=== PATIENT | female | born 1940 | race Native Hawaiian/Other Pacific Islander ===

== ENCOUNTER 2017-03-21 05:43 | Outpatient (CLI) | payer OTHER ==
[~2017-03-21 05:43] MED LIST: ACID REDUCER150 MG PO; ALPR0.5T24 PO; ANTI-DIARRHEAL2 MG PO; ASPIR-LOW81 MG PO; COZAAR100 MG PO; ELIQUIS5 MG PO; GLIM4TAB PO; MECLIZINE25 MG PO; NEPHRO-VITE; NITR0.4S2 SL; TRAM50TA PO
== END 2017-03-21 05:50 | disposition short-term general hospital (02) ==
LOC: AMB 05:43
DX: E16.1 Other hypoglycemia (principal)
CPT/HCPCS: A0425; A0427

== ENCOUNTER 2017-03-21 05:50 | Observation (INO) | payer OTHER ==
[2017-03-21] VITALS (9 sets, daily range): BP systolic 129–166; BP diastolic 42–65; TEMP 97.9–98.6; Ht 165.1 cm; Wt 83.5 kg
[~2017-03-21] VITALS: Ht 165.1 cm; Wt 83.5 kg
[2017-03-21 06:31] LABS: POTASSIUM 3.1 mmol/L (3.6-5.2)
[2017-03-21 06:36] LABS: PLATELET COUNT 199 K/uL (152-353)
--- NOTE | 2017-03-21 17:14 | NUR ---
PTS BLOOD SUGAR 65, CALLED DR [facility] AND CELL PHONE WITH NO ANSWER
== END 2017-03-21 19:15 | disposition short-term general hospital (02) ==
LOC: ED 05:50 → MED/SURG 08:20 → ED 09:20 → MED/SURG 19:15
PROVIDERS: Specialist; ADMIT Family Medicine
PROC: 5A1D70Z Performance of Urinary Filtration, Intermittent, Less than 6 Hours Per Day (ICD-10-PCS; principal; 2017-03-21)
DX: R41.82 Altered mental status, unspecified (principal); E11.649 Type 2 diabetes mellitus with hypoglycemia without coma; I12.0 Hypertensive chronic kidney disease with stage 5 chronic kidney disease or end stage renal disease; E11.22 Type 2 diabetes mellitus with diabetic chronic kidney disease; N18.6 End stage renal disease; T81.31XA Disruption of external operation (surgical) wound, not elsewhere classified, initial encounter
CPT/HCPCS: 36415; 36416; 36591; 80048; 80202; 82947; 85027; 87040; 87070; 87205; 96365; 96375; 99220; 99284; G0257; G0378; J1644; J3370; J7060

== ENCOUNTER → 2017-04-11 22:31 | Outpatient (CLI) | payer OTHER | END | disposition home or self-care (01) | LOC: AMB 22:31 | DX: E16.1 Other hypoglycemia (principal) ==

== ENCOUNTER 2017-04-18 10:22 | Observation (INO) | payer OTHER ==
[~2017-04-18] VITALS: Ht 160 cm; Wt 81.3 kg
[2017-04-18 10:15] VITALS: BP 156/56; TEMP 98.4
[2017-04-18 11:04] LABS: PLATELET COUNT 181 K/uL (152-353)
[2017-04-18 13:54] VITALS: BP 157/62; TEMP 98.6; Ht 160 cm; Wt 81.3 kg
[2017-04-18 20:00] VITALS: BP 130/40; TEMP 97.4
[2017-04-19] VITALS (12 sets, daily range): BP systolic 110–153; BP diastolic 32–61; TEMP 97.5–98.9
[2017-04-19 11:44] LABS: POTASSIUM 3.8 mmol/L (3.6-5.2)
[2017-04-19 12:45] LABS: PARTIAL THROMBOPLASTIN TIME 138.3 SECONDS (24.5-33.6)
[2017-04-19 17:02] LABS: PLATELET COUNT 194 K/uL (152-353)
[2017-04-19 17:17] LABS: POTASSIUM 3.8 mmol/L (3.6-5.2)
[2017-04-19 17:18] LABS: PARTIAL THROMBOPLASTIN TIME 26.3 SECONDS (24.5-33.6)
== END 2017-04-19 20:53 | disposition home or self-care (01) ==
LOC: ED 10:22 → MED/SURG 11:10
PROVIDERS: ADMIT Student in an Organized Health Care Education/Training Program
PROC: 0J2VXYZ Change Other Device in Upper Extremity Subcutaneous Tissue and Fascia, External Approach (ICD-10-PCS; principal; 2017-04-19)
DX: N18.6 End stage renal disease (principal); Z49.01 Encounter for fitting and adjustment of extracorporeal dialysis catheter; I72.8 Aneurysm of other specified arteries; Z99.2 Dependence on renal dialysis
CPT/HCPCS: 36415; 80048; 80053; 85027; 85610; 85730; 99220; 99283; C1750; G0378; J0690; J1644; J2001; J2250; J2405; J2704; J2720; J2765; J3010; J3490; S0028

== ENCOUNTER 2017-05-11 15:03 | Outpatient (CLI) | payer OTHER ==
[2017-05-11 15:38] LABS: PLATELET COUNT 227 K/uL (152-353)
[2017-05-11 15:48] LABS: PLATELET COUNT 227 K/uL (152-353)
== END 2017-05-11 19:58 | disposition home or self-care (01) ==
LOC: LAB 15:03
PROVIDERS: Internal Medicine Nephrology
DX: D64.89 Other specified anemias (principal)
CPT/HCPCS: 85027

== ENCOUNTER 2017-07-10 17:15 | Emergency (ER) | payer OTHER ==
[~2017-07-10] VITALS: Ht 160 cm; Wt 74.4 kg
[2017-07-10 19:11] LABS: PARTIAL THROMBOPLASTIN TIME 21.2 SECONDS (24.5-33.6)
[2017-07-10 19:13] LABS: PLATELET COUNT 122 K/uL (152-353)
[2017-07-10 19:50] VITALS: BP 151/65; TEMP 98.2
== END 2017-07-10 19:55 | disposition home or self-care (01) ==
LOC: ED 17:15
PROVIDERS: Specialist
DX: T82.838A Hemorrhage due to vascular prosthetic devices, implants and grafts, initial encounter (principal); N18.5 Chronic kidney disease, stage 5
CPT/HCPCS: 36415; 85027; 85610; 85730; 99283

== ENCOUNTER 2017-07-29 11:13 | Outpatient (CLI) | payer OTHER | END 2017-07-29 20:26 | disposition home or self-care (01) | LOC: LAB 11:13 | DX: D64.89 Other specified anemias (principal) | CPT/HCPCS: 85018 ==

== ENCOUNTER 2017-08-29 06:22 | Observation (INO) | payer OTHER ==
[~2017-08-29] VITALS: Ht 152.4 cm; Wt 81.2 kg
[2017-08-29 06:38] VITALS: BP 131/54; TEMP 98
[2017-08-29] MEDS ORDERED: BENZONATATE100 MG PO (06:42)
[2017-08-29] MEDS ORDERED: ONDA4TAB3 PO (06:42)
[2017-08-29] MEDS ORDERED: AMLODIPINE BESYLATE PO (06:43)
[2017-08-29] MEDS ORDERED: BISOPROL FUM5 MG PO (06:43)
[2017-08-29] MEDS ORDERED: PANTOPRAZOLE 40MG TA PO (06:44)
[2017-08-29] MEDS ORDERED: DIPH2.5T76 PO (06:45)
[2017-08-29 06:55] LABS: PLATELET COUNT 216 K/uL (152-353)
[2017-08-29 07:14] LABS: POTASSIUM 3.6 mmol/L (3.6-5.2)
[2017-08-29 13:08] VITALS: BP 135/57; TEMP 97.6; Ht 152.4 cm; Wt 81.2 kg
[2017-08-29 20:00] VITALS: BP 138/78; TEMP 97.9
[2017-08-30 00:55] VITALS: BP 172/66; TEMP 97.8
[2017-08-30 04:22] VITALS: BP 145/61; TEMP 97.7
[2017-08-30 06:26] LABS: PLATELET COUNT 196 K/uL (152-353)
[2017-08-30 06:38] LABS: POTASSIUM 4.2 mmol/L (3.6-5.2)
[2017-08-30 08:00] VITALS: BP 133/54; TEMP 98
[2017-08-30 12:00] VITALS: BP 149/60; TEMP 97
== END 2017-08-30 17:00 | disposition home or self-care (01) ==
LOC: ED 06:22 → MED/SURG 10:40
PROVIDERS: Specialist; ADMIT Emergency Medicine
PROC: 5A1D70Z Performance of Urinary Filtration, Intermittent, Less than 6 Hours Per Day (ICD-10-PCS; principal; 2017-08-29)
DX: E11.22 Type 2 diabetes mellitus with diabetic chronic kidney disease (principal); N18.6 End stage renal disease; Z99.2 Dependence on renal dialysis; I12.0 Hypertensive chronic kidney disease with stage 5 chronic kidney disease or end stage renal disease; D53.9 Nutritional anemia, unspecified; I51.7 Cardiomegaly
CPT/HCPCS: 36415; 36600; 80053; 82805; 82947; 83605; 83735; 84100; 84484; 85027; 96375; 99220; 99283; G0257; G0378; J1644; J2405; J7060

== ENCOUNTER 2017-09-07 05:40 | Observation (INO) | payer OTHER ==
[2017-09-07] VITALS (17 sets, daily range): BP systolic 158–184; BP diastolic 61–84; TEMP 97–98.9; Ht 152.4 cm; Wt 80.5 kg
[~2017-09-07] VITALS: Ht 152.4 cm; Wt 80.5 kg
[~2017-09-07 05:40] MED LIST changes: +AMLODIPINE BESYLATE PO; +BENZONATATE100 MG PO; +BISOPROL FUM5 MG PO; +DIPH2.5T76 PO; +ONDA4TAB3 PO; +PANTOPRAZOLE 40MG TA PO
[2017-09-07 06:30] LABS: PLATELET COUNT 200 K/uL (152-353)
[2017-09-07 06:42] LABS: POTASSIUM 3.8 mmol/L (3.6-5.2)
[2017-09-07] MEDS ORDERED: TRAM50TA PO (13:38)
[2017-09-07] MEDS ORDERED: HYDR-3182 PO (13:40)
[2017-09-07] MEDS ORDERED: SEVE800T PO (13:54)
[2017-09-07] MEDS ORDERED: ALPR0.5T24 PO (13:54)
== END 2017-09-07 18:44 | disposition short-term general hospital (02) ==
LOC: ED 05:40 → ICU 07:30
PROVIDERS: ADMIT Family Medicine
DX: J18.8 Other pneumonia, unspecified organism (principal); E11.22 Type 2 diabetes mellitus with diabetic chronic kidney disease; N18.6 End stage renal disease; Z99.2 Dependence on renal dialysis; R06.02 Shortness of breath
CPT/HCPCS: 36415; 80053; 83605; 83880; 84484; 85027; 87040; 93005; 94640; 94664; 94760; 96365; 99220; 99284; G0378; J0456; J0696; J0698; J1644; J1940; J3370; J7060

== ENCOUNTER 2017-12-01 15:30 | Emergency (ER) | payer OTHER ==
[~2017-12-01] VITALS: Ht 160 cm; Wt 76.2 kg
[~2017-12-01 15:30] MED LIST changes: +HYDR-3182 PO; +SEVE800T PO
[2017-12-01 16:06] LABS: PLATELET COUNT 147 K/uL (152-353)
[2017-12-01 16:16] LABS: POTASSIUM 4.2 mmol/L (3.6-5.2)
[2017-12-01 18:34] VITALS: BP 136/79; TEMP 97.9
== END 2017-12-01 18:34 | disposition home or self-care (01) ==
LOC: ED 15:32
PROVIDERS: Family Medicine
DX: R18.8 Other ascites (principal); N18.6 End stage renal disease
CPT/HCPCS: 80053; 85027; 96374; 96375; 99284; J1885; J2405

== ENCOUNTER 2018-05-13 11:14 | Outpatient (CLI) | payer OTHER | END 2018-05-13 23:46 | disposition home or self-care (01) | LOC: LAB 11:14 | DX: D64.89 Other specified anemias (principal) | CPT/HCPCS: 85014; 85018 ==

== ENCOUNTER 2018-08-28 13:27 | Emergency (ER) | payer OTHER ==
[~2018-08-28] VITALS: Ht 160 cm; Wt 75.0 kg
[2018-08-28 14:31] LABS: PLATELET COUNT 206 K/uL (152-353)
[2018-08-28 14:49] LABS: POTASSIUM 4.2 mmol/L (3.6-5.2); SODIUM 139 mmol/L (136-145)
[2018-08-28 17:00] VITALS: TEMP 97.7
[2018-08-28 18:40] VITALS: BP 153/52
== END 2018-08-28 18:40 | disposition home or self-care (01) ==
LOC: ED 13:27
PROVIDERS: Emergency Medicine
DX: R18.8 Other ascites (principal)
CPT/HCPCS: 36415; 80053; 82550; 83605; 83690; 84484; 85027; 96374; 99284; J2405

== ENCOUNTER 2018-09-27 13:34 | Outpatient (CLI) | payer OTHER | END 2018-09-27 23:32 | disposition home or self-care (01) | LOC: US 13:34 | DX: R09.89 Other specified symptoms and signs involving the circulatory and respiratory systems (principal) ==

== ENCOUNTER 2019-12-21 13:54 | Outpatient (CLI) | payer OTHER | END 2019-12-21 20:45 | disposition home or self-care (01) | LOC: LAB 13:54 | DX: D64.89 Other specified anemias (principal) | CPT/HCPCS: 85018 ==

== ENCOUNTER 2020-01-02 15:11 | Outpatient (CLI) | payer OTHER | END 2020-01-02 23:40 | disposition home or self-care (01) | LOC: LAB 15:11 | DX: D64.89 Other specified anemias (principal) | CPT/HCPCS: 85014; 85018 ==

== ENCOUNTER 2020-03-31 05:44 | Emergency (ER) | payer OTHER ==
[~2020-03-31] VITALS: Ht 160 cm; Wt 64.4 kg
[2020-03-31 06:00] VITALS: TEMP 97.7
[2020-03-31 07:14] LABS: PLATELET COUNT 183 K/uL (152-353)
[2020-03-31 07:15] LABS: POTASSIUM 5.6 mmol/L (3.6-5.2)
[2020-03-31 08:30] VITALS: BP 127/43
== END 2020-03-31 08:58 | disposition home or self-care (01) ==
LOC: ED 05:44
PROVIDERS: Hospitalist
DX: N18.6 End stage renal disease (principal); Z99.2 Dependence on renal dialysis; N23 Unspecified renal colic; R10.84 Generalized abdominal pain; R11.2 Nausea with vomiting, unspecified
CPT/HCPCS: 36415; 80053; 82150; 83690; 85027; 96374; 96375; 99284; J1885; J2270; J2405

== ENCOUNTER 2020-04-10 19:50 | Emergency (ER) | payer OTHER ==
[~2020-04-10] VITALS: Ht 172.7 cm; Wt 64.0 kg
[2020-04-10 20:27] LABS: PLATELET COUNT 166 K/uL (152-353)
[2020-04-10 20:39] LABS: POTASSIUM 4.5 mmol/L (3.6-5.2)
[2020-04-10 20:42] LABS: PARTIAL THROMBOPLASTIN TIME 25.5 SECONDS (24.5-33.6)
[2020-04-10 21:03] VITALS: BP 114/59
== END 2020-04-10 22:03 | disposition home or self-care (01) ==
LOC: ED 19:50
PROVIDERS: Hospitalist
DX: N18.6 End stage renal disease (principal); Z99.2 Dependence on renal dialysis; N20.0 Calculus of kidney; R11.2 Nausea with vomiting, unspecified; M54.89 Other dorsalgia; G89.29 Other chronic pain; Z87.442 Personal history of urinary calculi
CPT/HCPCS: 36415; 80053; 82150; 83690; 85027; 85610; 85730; 96372; 99283; J1170; J1885; J2405

== ENCOUNTER 2020-04-14 10:35 | Emergency (ER) | payer OTHER ==
[~2020-04-14] VITALS: Ht 172.7 cm; Wt 64.0 kg
[2020-04-14 11:25] LABS: PLATELET COUNT 195 K/uL (152-353)
[2020-04-14 11:39] LABS: POTASSIUM 5.3 mmol/L (3.6-5.2)
[2020-04-14 13:20] VITALS: BP 130/48; TEMP 97.8
== END 2020-04-14 13:20 | disposition home or self-care (01) ==
LOC: ED 10:37
PROVIDERS: Emergency Medicine Emergency Medical Services
DX: N18.6 End stage renal disease (principal); Z99.2 Dependence on renal dialysis; Z03.818 Encounter for observation for suspected exposure to other biological agents ruled out
CPT/HCPCS: 36415; 80053; 82140; 83735; 85027; 87502; 87635; 93005; 99283; U0003

== ENCOUNTER 2020-06-27 14:49 | Outpatient (CLI) | payer OTHER | END 2020-06-27 21:35 | disposition home or self-care (01) | LOC: LAB 14:49 | PROVIDERS: ATTEND Physician Assistant Medical | DX: D64.89 Other specified anemias (principal) | CPT/HCPCS: 85014; 85018 ==

== ENCOUNTER 2020-10-29 09:38 | Emergency (ER) | payer OTHER ==
[~2020-10-29] VITALS: Ht 172.7 cm; Wt 64.0 kg
[2020-10-29 10:29] LABS: POTASSIUM 3.1 mmol/L (3.6-5.2); SODIUM 136 mmol/L (136-145)
[2020-10-29 11:04] LABS: PARTIAL THROMBOPLASTIN TIME 30.3 SECONDS (24.5-33.6)
[2020-10-29 11:13] LABS: PLATELET COUNT 232 K/uL (152-353)
[2020-10-29 11:45] VITALS: BP 116/52; TEMP 97.6
== END 2020-10-29 11:45 | disposition home or self-care (01) ==
LOC: ED 09:38
PROVIDERS: Hospitalist
DX: N18.6 End stage renal disease (principal); Z99.2 Dependence on renal dialysis; E87.6 Hypokalemia; I50.9 Heart failure, unspecified
CPT/HCPCS: 36415; 80053; 82550; 83880; 84484; 85007; 85027; 85610; 85730; 93005; 99284